=== PATIENT | male | born 1955 | race Caucasian/White ===

== ENCOUNTER 2020-10-09 09:35 | Emergency (ER) | payer BC, MEDICAID ==
[~2020-10-09] VITALS: Ht 177.8 cm; Wt 105.0 kg
[2020-10-09] MEDS ORDERED: LIDOcaine 1% W/epiNEPHrine 1:100,000 20ml vial SQ ONE (09:55)
[2020-10-09 10:21] LABS: BASOPHILS % (AUTO) 0.6 % (0-1); EOSINOPHILS # (AUTO) 0.1 X10'3 (0-0.9); EOSINOPHILS % (AUTO) 1.6 % (0-6); LYMPHOCYTES % (AUTO) 17.8 % (21-51); MEAN CORPUSCULAR HEMOGLOBIN 40.6 PG (27.0-31.0); MEAN CORPUSCULAR HGB CONC 34.4 g/dL (33.0-36.5); MEAN CORPUSCULAR VOLUME 117.8 FL (78-98); MONOCYTES # (AUTO) 0.8 X10'3 (0-0.9); MONOCYTES % (AUTO) 12.8 % (2-12); NEUTROPHILS % (AUTO) 67.2 % (42-75); PLATELET COUNT 84 X10'3 (140-440); RED BLOOD COUNT 2.71 X10'6 (4.70-6.10); RED CELL DISTRIBUTION WIDTH 14.9 % (11.5-14.5); WHITE BLOOD COUNT 5.9 X10'3 (4.5-11.0)
[2020-10-09 10:33] LABS: ALANINE AMINOTRANSFERASE 44 U/L (12-78); ALBUMIN 1.7 G/DL (3.4-5.0); ALKALINE PHOSPHATASE 172 IU/L (46-116); AMYLASE 63 U/L (25-115); ANION GAP 9 (8-16); ASPARTATE AMINO TRANSFERASE 113 U/L (10-37); BILIRUBIN,TOTAL 8.1 MG/DL (0.1-1.0); BLOOD UREA NITROGEN 24 MG/DL (7-18); BUN/CREATININE RATIO 8.1 (5.4-32.0); CALCIUM 8.3 MG/DL (8.5-10.1); CHLORIDE 101 MMOL/L (99-107); CREATININE 2.96 MG/DL (0.60-1.10); GLUCOSE 114 MG/DL (70-104); LIPASE 439 U/L (73-393); SODIUM 135 MMOL/L (135-145); TOTAL CARBON DIOXIDE 24.8 MMOL/L (24-32); eGFR 21 ML/MIN
[2020-10-09 10:37] LABS: ALBUMIN/GLOBULIN RATIO 0.3 (1.1-1.5); POTASSIUM 3.9 MMOL/L (3.5-5.1); TOTAL PROTEIN 7.1 G/DL (6.4-8.2)
[2020-10-09 10:51] LABS: PLATELET ESTIMATE DECREASED; POLYCHROMASIA FEW
[2020-10-09 10:53] LABS: ROULEAUX 2+
[2020-10-09 11:38] LABS: CLARITY,URINE CLOUDY (Clear); COLOR,URINE AMBER (Yellow); GLUCOSE, URINE NEGATIVE (Neg); KETONES,URINE 15 mg/dl (Neg); LEUKOCYTE ESTERASE ,URINE SMALL (Neg); NITRITES, URINE NEGATIVE (Neg); OCCULT BLOOD,URINE LARGE (Neg); PH,URINE 6.5 (4.8-8.0); PROTEIN,URINE >=300 mg/dl (Neg)
[2020-10-09 11:39] LABS: UA COLLECTION TYPE VOIDED
[2020-10-09 11:52] LABS: CELLULAR CAST 0-4 /LPF (NEGATIVE)
[2020-10-09 11:53] LABS: COARSE GRANULAR CAST 0-3 /LPF (NEGATIVE); HYALINE CASTS 0-3 /LPF (NEGATIVE); SQUAMOUS EPITHELIAL CELL,UR FEW /LPF (FEW)
[2020-10-09 11:54] LABS: MUCUS STRANDS NONE SEEN /LPF (Neg); RBC,URINE TNTC /HPF (0-2); TRANSITIONAL EPI CELLS,URINE FEW /HPF
[2020-10-09 11:55] LABS: CAL OXALATE CRYSTALS FEW /HPF (NEGATIVE); RENAL CELLS, URINE FEW /HPF; WBC,URINE 0-4 /HPF (0-4)
--- NOTE | 2020-10-09 12:02 | NUR ---
PARACENTESIS PERFORMED LEFT LATERAL ABDOMEN. DRAINING PURULENT FLUID IN COLLECTION BOTTLE.
[2020-10-09 12:16] LABS: BACTERIA,URINE 1+ /HPF (Neg)
[2020-10-09 12:18] LABS: AMORPHOUS URATES 2+
--- NOTE | 2020-10-09 12:42 | NUR ---
PERITONEAL FLUID SENT TO LAB WITH CYTOLOGY PAPERWORK
[2020-10-09 13:30] VITALS: BP 97/50
[2020-10-09 14:12] LABS: BFAPPEAR CLEAR; BFCOLOR YELLOW
[2020-10-09 14:13] LABS: BF MESOTHELIAL CELLS MANY; BF RBC COUNT 420 /CU MM; BF WBC COUNT 110 /CU MM (0-1000); BFVOLUME 24 ML; LYMPHOCYTES,BODY FLUID 30 %; MONOCYTES,BODY FLUID 54 %; NEUTROPHILS,BODY FLUID 16 %
== END 2020-10-09 16:26 | disposition home or self-care (01) ==
LOC: ER 09:36
DX: R18.8 Other ascites (principal); R10.9 Unspecified abdominal pain; Z88.8 Allergy status to other drugs, medicaments and biological substances
CPT/HCPCS: 36415; 49083; 71045; 80053; 81001; 82150; 83690; 85008; 85025; 85610; 88108; 88305; 89051; 99285